=== PATIENT | female | born 1945 | race Caucasian/White ===

== ENCOUNTER 2022-09-08 03:11 | Inpatient (IN) | payer OTHER ==
[~2022-09-08] VITALS: Ht 175.3 cm; Wt 63.4 kg
[2022-09-08] MEDS ORDERED: ACETAMINOPHEN 325 MG TAB PO PRN (10:00)
[2022-09-08] MEDS ORDERED: NITROGLYCERIN 0.4 MG SL TAB SL PRN (10:00)
[2022-09-08] MEDS ORDERED: HYDROcodone-ACET 5/325MG TAB PO PRN (10:00)
[2022-09-08 10:35] VITALS: PULSE 77; RESP 20; O2SAT 94
[2022-09-08 13:31] LABS: Basophils # (auto) 0.1 10 ^3/uL (0-0.2); Basophils % (auto) 0.5 % (0.0-2.0); Eosinophils # (auto) 0 10 ^3/uL (0-0.8); Eosinophils % (auto) 0.4 % (0.0-7.0); Hematocrit 40.4 % (36.0-46.0); Hemoglobin 13.4 g/dL (12.2-16.2); Lymphocytes # (auto) 1.1 10 ^3/uL (0.4-5.4); Mean Corpuscular Hemoglobin 29.5 pg (28.0-32.0); Mean Corpuscular Hgb Conc. 33.1 g/dL (32.0-36.0); Mean Corpuscular Volume 89.1 fL (80.0-100.0); Monocytes # (auto) 0.9 10 ^3/uL (0-1.3); Monocytes % (auto) 8.3 % (0.0-12.0); Neutrophils # (auto) 9.2 10 ^3/uL (1.6-8.6); Neutrophils % (auto) 80.8 % (37.0-80.0); Red Blood Cells 4.54 10^6/uL (4.0-5.20); Red Cell Distribution Width 13.4 % (11.8-14.3); White Blood Cell 11.4 10^3/uL (4.4-10.8)
[2022-09-08] MEDS: HYDROcodone-ACET 10/325MG TAB PO PRN ×2 (13:34→19:52)
[2022-09-08 13:40] LABS: Prothrombin Time 10.5 sec (9.3-11.8)
[2022-09-08 13:44] LABS: Albumin 3.2 g/dL (3.4-5.0); Calcium 8.6 mg/dL (8.5-10.1)
[2022-09-08 13:48] LABS: BUN/Creatinine Ratio 18.3 (10.0-20.0); Total Protein 6.5 g/dL (6.4-8.2)
[2022-09-08] MEDS ORDERED: ENOXAPARIN SOD 40 MG/0.4 ML SYRINGE SC ONE (14:45)
[2022-09-08 15:41] LABS: Urine Bacteria FEW /hpf (None Seen); Urine Blood 2+ /uL (Negative); Urine Clarity Clear (Clear); Urine Color Colorless (Yellow); Urine Protein, UAD Negative (Negative); Urine Specific Gravity 1.012 (1.001-1.035); Urine Urobilinogen Normal (Negative); Urine WBC 1 /hpf (0 - 5)
[2022-09-08 16:40] VITALS: BP 135/70; PULSE 81; RESP 18; TEMP 98.4; O2SAT 94
[2022-09-08] MEDS: cefTRIAXone 1GM/50ML D5W 50 ML IV SCH (16:40)
[2022-09-08] MEDS: MORPHINE SULFATE INJ 2 MG/ml SYRG IV PRN ×3 (16:59→22:39)
[2022-09-08 20:00] VITALS: PULSE 70; PULSE 81
[2022-09-08 22:00] VITALS: BP 109/55; PULSE 80; RESP 15; TEMP 98.4; O2SAT 91
[2022-09-09] VITALS (7 sets, daily range): BP systolic 122–138; BP diastolic 58–74; PULSE 78–98; RESP 16–18; TEMP 98–98.4; O2SAT 90–99
[2022-09-09] MEDS: MORPHINE SULFATE INJ 2 MG/ml SYRG IV PRN ×3 (05:21→11:58)
[2022-09-09 05:47] LABS: Basophils # (auto) 0 10 ^3/uL (0-0.2); Basophils % (auto) 0.3 % (0.0-2.0); Eosinophils # (auto) 0.1 10 ^3/uL (0-0.8); Eosinophils % (auto) 1.4 % (0.0-7.0); Hematocrit 36.2 % (36.0-46.0); Hemoglobin 12.7 g/dL (12.2-16.2); Lymphocytes # (auto) 1.2 10 ^3/uL (0.4-5.4); Lymphocytes % (auto) 14.4 % (10.0-50.0); Mean Corpuscular Hemoglobin 30.7 pg (28.0-32.0); Mean Corpuscular Volume 87.7 fL (80.0-100.0); Monocytes # (auto) 0.9 10 ^3/uL (0-1.3); Monocytes % (auto) 11.4 % (0.0-12.0); Neutrophils # (auto) 5.9 10 ^3/uL (1.6-8.6); Neutrophils % (auto) 72.5 % (37.0-80.0); Nucleated Red Blood Cells % 0.1 %; Red Blood Cells 4.13 10^6/uL (4.0-5.20); Red Cell Distribution Width 13.2 % (11.8-14.3); White Blood Cell 8.1 10^3/uL (4.4-10.8)
[2022-09-09 05:51] LABS: Potassium 3.9 mmol/L (3.5-5.1)
[2022-09-09 05:58] LABS: BUN/Creatinine Ratio 28.2 (10.0-20.0); Calcium 8.3 mg/dL (8.5-10.1)
[2022-09-09] MEDS: cefTRIAXone 1GM/50ML D5W 50 ML IV SCH (08:13)
[2022-09-09] MEDS: HYDROcodone-ACET 10/325MG TAB PO PRN (08:22)
[2022-09-09] MEDS ORDERED: SODIUM CHLORIDE 0.9% 1,000 ML IV SCH (09:15)
[2022-09-09 16:24] LABS: BUN/Creatinine Ratio 14.9 (10.0-20.0); Calcium 8.4 mg/dL (8.5-10.1); Potassium 3.8 mmol/L (3.5-5.1)
[2022-09-09 17:03] LABS: Sodium Urine 35 mmol/L (40-220)
[2022-09-09 17:05] LABS: Creatinine, Urine 61 mg/dL (30.0-125.0)
[2022-09-09] MEDS ORDERED: UREA 15gm PO Powder PKG PO SCH (19:00)
[2022-09-09] MEDS: UREA 15gm PO Powder PKG PO SCH (19:48)
[2022-09-10 01:00] LABS: BUN/Creatinine Ratio 60.5 (10.0-20.0); Calcium 8.3 mg/dL (8.5-10.1); Potassium 3.7 mmol/L (3.5-5.1)
[2022-09-10] MEDS: MORPHINE SULFATE INJ 2 MG/ml SYRG IV PRN ×2 (02:50→13:31)
[2022-09-10 05:00] VITALS: BP 138/74; PULSE 79; RESP 17; TEMP 98.4; O2SAT 97
[2022-09-10 05:39] LABS: Basophils # (auto) 0 10 ^3/uL (0-0.2); Basophils % (auto) 0.3 % (0.0-2.0); Eosinophils # (auto) 0.1 10 ^3/uL (0-0.8); Eosinophils % (auto) 0.9 % (0.0-7.0); Hematocrit 36.6 % (36.0-46.0); Hemoglobin 12.5 g/dL (12.2-16.2); Lymphocytes % (auto) 11.5 % (10.0-50.0); Mean Corpuscular Hemoglobin 30.4 pg (28.0-32.0); Mean Corpuscular Hgb Conc. 34.2 g/dL (32.0-36.0); Mean Corpuscular Volume 88.9 fL (80.0-100.0); Monocytes # (auto) 1.1 10 ^3/uL (0-1.3); Monocytes % (auto) 12.2 % (0.0-12.0); Neutrophils # (auto) 6.6 10 ^3/uL (1.6-8.6); Neutrophils % (auto) 75.1 % (37.0-80.0); Nucleated Red Blood Cells % 0.1 %; Red Blood Cells 4.12 10^6/uL (4.0-5.20); Red Cell Distribution Width 13.1 % (11.8-14.3); White Blood Cell 8.8 10^3/uL (4.4-10.8)
[2022-09-10 06:01] LABS: Calcium 8.6 mg/dL (8.5-10.1); Potassium 3.6 mmol/L (3.5-5.1)
[2022-09-10] MEDS ORDERED: TRANEXAMIC ACID 20 ML ONE (07:15)
[2022-09-10] MEDS ORDERED: VANCOMYCIN HCL 1000 MG VL ONE (07:16)
[2022-09-10] MEDS ORDERED: BUPIVACAINE 0.25% INJ 50ML VIAL ONE (07:16)
[2022-09-10] MEDS ORDERED: fentaNYL CITRATE 100 MCG/2 ML VL ONE ×2 (07:19→07:56)
[2022-09-10] MEDS ORDERED: MIDAZOLAM HCL 2MG/2ML 2ml VIAL (1mg/ml) ONE (07:20)
[2022-09-10] MEDS ORDERED: KETOROLAC TROMETH 30 MG/ML 1ML VIAL ONE (07:34)
[2022-09-10] MEDS ORDERED: MORPHINE SULF PF 5 MG/10 ML VIAL ONE (07:34)
[2022-09-10] MEDS ORDERED: ceFAZolin 1GM/50ML 100 ML IV ONE (07:54)
[2022-09-10] MEDS ORDERED: PROPOFOL 10 MG/ML 20 ML IV ONE ×2 (07:57→12:41)
[2022-09-10] MEDS ORDERED: LIDOCAINE 1% INJ PF 5ML AMP ONE (07:57)
[2022-09-10] MEDS ORDERED: ROCURONIUM 10MG/ML 10ML VIAL IV ONE (07:58)
[2022-09-10 08:00] VITALS: PULSE 77; PULSE 78; RESP 20; O2SAT 100
[2022-09-10] MEDS: UREA 15gm PO Powder PKG PO SCH ×2 (08:00→19:43)
[2022-09-10] MEDS: cefTRIAXone 1GM/50ML D5W 50 ML IV SCH (09:00)
[2022-09-10] MEDS ORDERED: HYDROmorphone HCL 2 MG/ML VL/or syr ONE (09:06)
[2022-09-10] MEDS ORDERED: ROPIVACAINE 0.5% (5MG/ML) 20ML AMPULE IJ ONE (09:53)
[2022-09-10] MEDS ORDERED: ONDANSETRON HCL 4 MG/2 ML VIAL IV PRN (10:00)
[2022-09-10] MEDS ORDERED: HYDROmorphone HCL 2 MG/ML VL/or syr IV PRN ×2 (10:00)
[2022-09-10 14:05] LABS: BUN/Creatinine Ratio 23.9 (10.0-20.0); Calcium 7.9 mg/dL (8.5-10.1); Potassium 4.1 mmol/L (3.5-5.1)
[2022-09-10] MEDS: ceFAZolin 2 GM/D5W100ml 100 ML IV SCH ×2 (16:47→21:50)
[2022-09-10 17:00] VITALS: BP 101/52; PULSE 69; RESP 19; O2SAT 100
[2022-09-10 19:34] LABS: BUN/Creatinine Ratio 27.7 (10.0-20.0); Calcium 7.9 mg/dL (8.5-10.1); Potassium 4.1 mmol/L (3.5-5.1)
[2022-09-10 20:00] VITALS: PULSE 73; PULSE 78; RESP 17; O2SAT 99
[2022-09-10 22:00] VITALS: BP 112/53; PULSE 73; RESP 16; TEMP 97.7; O2SAT 99
[2022-09-11 01:15] LABS: Calcium 7.9 mg/dL (8.5-10.1); Potassium 3.8 mmol/L (3.5-5.1)
[2022-09-11] MEDS: ceFAZolin 2 GM/D5W100ml 100 ML IV SCH ×3 (05:06→22:23)
[2022-09-11 06:31] LABS: Basophils # (auto) 0 10 ^3/uL (0-0.2); Basophils % (auto) 0.5 % (0.0-2.0); Eosinophils # (auto) 0.1 10 ^3/uL (0-0.8); Eosinophils % (auto) 1.5 % (0.0-7.0); Hemoglobin 10.7 g/dL (12.2-16.2); Lymphocytes # (auto) 0.7 10 ^3/uL (0.4-5.4); Lymphocytes % (auto) 8.1 % (10.0-50.0); Mean Corpuscular Hemoglobin 31.4 pg (28.0-32.0); Mean Corpuscular Hgb Conc. 35.6 g/dL (32.0-36.0); Mean Corpuscular Volume 88.2 fL (80.0-100.0); Monocytes # (auto) 1.1 10 ^3/uL (0-1.3); Monocytes % (auto) 12.5 % (0.0-12.0); Neutrophils # (auto) 7.1 10 ^3/uL (1.6-8.6); Neutrophils % (auto) 77.4 % (37.0-80.0); Red Blood Cells 3.41 10^6/uL (4.0-5.20); Red Cell Distribution Width 12.9 % (11.8-14.3); White Blood Cell 9.2 10^3/uL (4.4-10.8)
[2022-09-11 06:51] LABS: BUN/Creatinine Ratio 43.2 (10.0-20.0); Calcium 7.9 mg/dL (8.5-10.1); Potassium 3.7 mmol/L (3.5-5.1)
[2022-09-11 08:00] VITALS: PULSE 67; PULSE 73; PULSE 85; RESP 18; O2SAT 93
[2022-09-11] MEDS: HYDROcodone-ACET 10/325MG TAB PO PRN ×2 (09:12→17:31)
[2022-09-11] MEDS: UREA 15gm PO Powder PKG PO SCH ×3 (10:32→20:51)
[2022-09-11 13:17] LABS: BUN/Creatinine Ratio 28.6 (10.0-20.0); Calcium 8.2 mg/dL (8.5-10.1); Potassium 3.5 mmol/L (3.5-5.1)
[2022-09-11] MEDS: ASPirin 81 mg TAB PO SCH (18:44)
[2022-09-11 20:00] VITALS: BP 111/60; PULSE 83; RESP 18; TEMP 98.2; O2SAT 95; O2SAT 96
[2022-09-11] MEDS: MORPHINE SULFATE INJ 2 MG/ml SYRG IV PRN (22:24)
[2022-09-12] VITALS (7 sets, daily range): BP systolic 96–126; BP diastolic 46–71; PULSE 64–85; RESP 16–18; TEMP 97.1–98.4; O2SAT 93–96
[2022-09-12 06:09] LABS: BUN/Creatinine Ratio 128.1 (10.0-20.0); Calcium 8.5 mg/dL (8.5-10.1); Potassium 3.3 mmol/L (3.5-5.1)
[2022-09-12] MEDS: ASPirin 81 mg TAB PO SCH ×2 (06:17→17:52)
[2022-09-12] MEDS: ceFAZolin 2 GM/D5W100ml 100 ML IV SCH ×3 (06:17→22:04)
[2022-09-12] MEDS: HYDROcodone-ACET 10/325MG TAB PO PRN ×2 (08:08→17:52)
[2022-09-12] MEDS ORDERED: POTASSIUM CHL 20 Meq TABLET PO ONE (15:45)
[2022-09-12 16:43] LABS: COVID19 ANTIGEN SOFIA FIA NEGATIVE (NEGATIVE)
[2022-09-13 05:00] VITALS: BP 123/66; PULSE 76; RESP 16; TEMP 98.4; O2SAT 90
[2022-09-13] MEDS: ASPirin 81 mg TAB PO SCH (06:07)
[2022-09-13] MEDS: ceFAZolin 2 GM/D5W100ml 100 ML IV SCH ×2 (06:07→14:26)
[2022-09-13 08:00] VITALS: BP 126/66; PULSE 74; PULSE 76; RESP 18; TEMP 97.6; O2SAT 92
[2022-09-13 08:56] VITALS: BP 126/66; PULSE 76; RESP 18; TEMP 97.6; O2SAT 92
[2022-09-13] MEDS: HYDROcodone-ACET 10/325MG TAB PO PRN (09:45)
[2022-09-13 13:00] VITALS: BP 117/64; PULSE 80; RESP 20; TEMP 97.9; O2SAT 97
[2022-09-13 14:46] LABS: Potassium 3.9 mmol/L (3.5-5.1)
[2022-09-13 14:51] LABS: BUN/Creatinine Ratio 27.5 (10.0-20.0); Calcium 8.4 mg/dL (8.5-10.1)
[2022-09-13 15:57] VITALS: BP 117/64; PULSE 80; RESP 20; TEMP 97.9; O2SAT 97
== END 2022-09-13 17:00 | DRG 469 ==
LOC: TELE-CENTR 08:11
PROVIDERS: ADMIT Nurse Practitioner Family; ATTEND Nurse Practitioner Family
PROC: 0SRS0JZ Replacement of Left Hip Joint, Femoral Surface with Synthetic Substitute, Open Approach (ICD-10-PCS; principal; 2022-09-10 07:57)
PROC: 0PSJ34Z Reposition Left Radius with Internal Fixation Device, Percutaneous Approach (ICD-10-PCS; 2022-09-10 07:57)
DX: S52.502A Unspecified fracture of the lower end of left radius, initial encounter for closed fracture (principal); S72.002A Fracture of unspecified part of neck of left femur, initial encounter for closed fracture; J98.11 Atelectasis; E22.2 Syndrome of inappropriate secretion of antidiuretic hormone; F17.210 Nicotine dependence, cigarettes, uncomplicated; W18.39XA Other fall on same level, initial encounter; Z20.822 Contact with and (suspected) exposure to COVID-19; I10 Essential (primary) hypertension; Z91.018 Allergy to other foods; Z88.7 Allergy status to serum and vaccine; Z79.899 Other long term (current) drug therapy; Z82.49 Family history of ischemic heart disease and other diseases of the circulatory system; Y93.89 Activity, other specified; Y92.89 Other specified places as the place of occurrence of the external cause; Y99.8 Other external cause status
CPT/HCPCS: 36415; 71045; 72170; 73100; 73110; 76000; 80048; 80053; 81001; 82570; 83930; 83935; 84133; 84300; 85025; 85610; 86850; 86900; 86901; 87040; 87426; 93005; 93306; 96372; 97110; 97116; 97163; 97530; A4565; G0378; J0690; J0696; J1885; J2250; J2704; J3490

== ENCOUNTER 2025-02-15 14:40 | Inpatient (IN) | payer OTHER ==
[~2025-02-15] VITALS: Ht 170.2 cm; Wt 59.3 kg
--- NOTE | 2025-02-15 14:50 | ECG ---
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
--- NOTE | 2025-02-15 14:56 | ED.PDOC ---
History of Present Illness HPI Comments 79-year-old female came to the ER stating that she has been having chest pain which started around 12 30 in the afternoon. Patient was just resting when the pain started. Patient states that she never had chest pain like this in the past. Chest pain mostly in the mid chest no radiation of the chest pain to the shoulder to the back. Denies nausea vomiting sweating. Denies any past medical history. Denies any other symptoms. Chief Complaint: Chest Pain Time Seen by MD: 14:46 Reviewed Notes: Nurses Notes, Medications, Allergies Allergies: Coded Allergies: Banana (Verified Allergy, Severe, 09/08/22) Uncoded Allergies: GLUTEN (Allergy, Severe, 09/08/22) ORANGE JUICE (Allergy, Severe, 09/08/22) PECANS (Allergy, Severe, 09/08/22) TETANUS (Allergy, Severe, 09/08/22) WALNUTS (Allergy, Severe, 09/08/22) Home Meds No Active Prescriptions or Reported Meds Information Source: Patient Mode of Arrival: Wheelchair Severity: Moderate Timing: Hours Duration: Since onset Past Medical History PAST MEDICAL HISTORY: Denies Surgical History: Denies all surgeries STORE CASHIER History: No Pertinent STORE CASHIER History Social History Smoker: Cigarettes Alcohol: Denies ETOH Use Drugs: Denies Drug Use Constitutional: denies: chills, diaphoresis, fatigue, fever, malaise, sweats, weakness, others EENTM: denies: blurred vision, double vision, ear bleeding, ear discharge, ear drainage, ear pain, ear ringing, eye pain, eye redness, hearing loss, mouth pain, mouth swelling, nasal discharge, nose bleeding, nose congestion, nose pain, photophobia, tearing, throat pain, throat swelling, voice changes, others Respiratory: denies: cough, hemoptysis, orthopnea, SOB at rest, shortness of breath, SOB with excertion, stridor, wheezing, others Cardiovascular: reports: chest pain; denies: dizzy spells, diaphoresis, Dyspnea on exertion, edema, irregular heart beat, left arm pain, lightheadedness, palpitations, PND, syncope, others Gastrointestinal: denies: abdomen distended, abdominal pain, blood streaked bowels, constipated, diarrhea, dysphagia, difficulty swallowing, hematemesis, melena, nausea, poor appetite, poor fluid intake, rectal bleeding, rectal pain, vomiting, others Genitourinary: denies: abnormal vagina bleeding, burning, dyspareunia, dysuria, flank pain, frequency, hematuria, incontinence, pain, , vagina discharge, urgency, others Neurological: denies: dizziness, fainting, headache, left sided numbness, left sided weakness, numbness, paresthesia, pre-existing deficit, right sided numbness, right sided weakness, seizure, speech problems, tingling, tremors, weakness, others Musculoskeletal: denies: back pain, gout, joint pain, joint swelling, muscle pain, muscle stiffness, neck pain, others Integumetry: denies: bruises, change in color, change in hair/nails, dryness, laceration, lesions, lumps, rash, wounds, others Allergic/Immunocompromised: denies: Difficulty Healing, Frequent Infections, Hives, Itching, others Hematologic/Lymphatic: denies: anemia, blood clots, easy bleeding, easy bruising, swollen glands, others Endocrine: denies: excessive hunger, excessive sweating, excessive thirst, excessive urination, flushing, intolerance to cold, intolerance to heat, u nexplained weight gain, unexplained weight loss, others Psychiatric: denies: anxiety, bipolar disorder, depression, hopeless, panic disorder, schizophrenia, sleepless, suicidal, others Physical Exam General Appearance: Moderate Distress HEENT: Normal ENT Inspection, Pharynx Normal, TMs Normal Neck: Full Range of Motion, Non-Tender, Normal, Normal Inspection Respiratory: Chest Non-Tender, Lungs Clear, No Accessory Muscle Use, No Respiratory Distress, Normal Breath Sounds Cardiovascular: No Edema, No JVD, No Murmur, No Gallop, Normal Peripheral Pulses, Regular Rate/Rhythm Breast Exam: Deferred Gastrointestinal: No Organomegaly, Non Tender, No Pulsatile Mass, Normal Bowel Sounds, Soft Genitalia: Deferred Pelvic: Deferred Rectal: Deferred Extremities: No calf tenderness, Normal capillary refill, Normal inspection, Normal range of motion, Non-tender, No pedal edema Musculoskeletal : Apperance: Normal Neurologic: Alert, examining officer II-XII nml as Tested, No Motor Deficits, Normal Affect, Normal Mood, No Sensory Deficits Cerebellar Function: NOT DONE Reflexes: NOT DONE Skin: Dry, Normal Color, Warm Peripheral Pulses: 3+ Radial (R), 3+ Radial (L) Lymphatic: No Adenopathy Was a procedure done? Was a procedure done?: No EKG EKG : Pulse Rate (adult): 85 Cardiac Rhythm: NSR Differential Dx Considerations may include: Anemia Electrolyte imbalance X-Ray, Labs, Meds, VS Vital Signs Date Time Temp Pulse Resp B/P (MAP) Pulse Ox O2 Delivery O2 Flow Rate FiO2 02/15/25 17:20 98.2 79 18 111/58 (75) 95 98.2 02/15/25 16:09 79 02/15/25 14:56 85 02/15/25 14:51 97.5 91 22 141/77 93 97.5 02/15/25 14:47 85 Lab Test 02/15/25 16:25 02/15/25 14:54 Range/Units Troponin I High Sensitivity 3 L 3 L </=34 ng/L White Blood Count 12.3 H 4.4-10.8 10^3/uL Red Blood Count 4.62 4.0-5.20 10^6/uL Hemoglobin 14.4 12.2-16.2 g/dL Hematocrit 41.5 36.0-46.0 % Mean Corpuscular Volume 89.9 80.0-100.0 fL Mean Corpuscular Hemoglobin 31.1 28.0-32.0 pg Mean Corpuscular Hemoglobin Concent 34.6 32.0-36.0 g/dL Red Cell Distribution Width 13.0 11.8-14.3 % Platelet Count 349 140-450 10^3/uL Mean Platelet Volume 6.2 L 6.9-10.8 fL Neutrophils (%) (Auto) 82.5 H 37.0-80.0 % Lymphocytes (%) (Auto) 9.0 L 10.0-50.0 % Monocytes (%) (Auto) 8.0 0.0-12.0 % Eosinophils (%) (Auto) 0.3 0.0-7.0 % Basophils (%) (Auto) 0.2 0.0-2.0 % Neutrophils # (Auto) 10.2 H 1.6-8.6 10 ^3/uL Lymphocytes # (Auto) 1.1 0.4-5.4 10 ^3/uL Monocytes # (Auto) 1.0 0-1.3 10 ^3/uL Eosinophils # (Auto) 0 0-0.8 10 ^3/uL Basophils # (Auto) 0 0-0.2 10 ^3/uL Nucleated Red Blood Cells 0.0 % Sodium Level 134 L 136-145 mmol/L Potassium Level 3.8 3.5-5.1 mmol/L Chloride Level 102 98-107 mmol/L Carbon Dioxide Level 24 20-31 mmol/L Anion Gap 8 5-15 Blood Urea Nitrogen 15 9-23 mg/dL Creatinine 0.66 0.550-1.02 mg/dL Glomerular Filtration Rate Calc 88 >90 mL/min BUN/Creatinine Ratio 22.7 H 10.0-20.0 Serum Glucose 114 H 74-106 mg/dL Calcium Level 9.6 8.7-10.4 mg/dL Magnesium Level 2.0 1.6-2.6 mg/dL Total Bilirubin 0.3 0.2-1.0 mg/dL Aspartate Amino Transferase (AST) 25 13-40 U/L Alanine Aminotransferase (ALT) 15 7-40 U/L Alkaline Phosphatase 82 46-116 U/L Total Protein 7.1 5.7-8.2 g/dL Albumin 4.4 3.2-4.8 g/dL Patient alert. Complaining of chest pain. Vitals stable. Answering questions. Was given aspirin. Was given nitro. EKG reviewed does not show any acute changes. Chest x-ray does show changes. Explained to the patient. Continue monitoring. Time of 1ST Reevaluation: 14:55 Reevaluation 1ST: Unchanged Patient Education/Counseling: Diagnosis, Treatment, Prognosis Family Education/Counseling: No Family Present SEPSIS Sepsis Screen Physician Orders Chest Portable (02/15/25 14:44) Urinalysis (02/15/25 14:44) Troponin-I Hs (02/15/25 17:44) Electrocardigram (02/15/25 15:44) Electrocardigram (02/15/25 17:44) Vital Signs Date Time Temp Pulse Resp B/P (MAP) Pulse Ox O2 Delivery O2 Flow Rate FiO2 02/15/25 17:20 98.2 79 18 111/58 (75) 95 98.2 02/15/25 16:09 79 02/15/25 14:56 85 02/15/25 14:51 97.5 91 22 141/77 93 97.5 02/15/25 14:47 85 Laboratory Tests Test 02/15/25 14:54 White Blood Count 12.3 10^3/uL (4.4-10.8) H Departure 1 Departure Time of Disposition: 14:56 Impression: Primary Impression: Chest pain of unknown etiology Additional Impression: Pneumonitis Disposition: ADMITTED INPATIENT Admit to: Med Surg Condition: Guarded e-Prescriptions No Active Prescriptions or Reported Meds Critical Care Note Critical Care Time?: No Stability Stability form required: No Heart Score Heart Score: Heart Score Response (Comments) Value History Slightly Suspicious 0 EKG Normal 0 Age >65 2 Risk Factors >3 or Hx ASHD 2 Troponin Normal limit 0 Total 4 KYLE CHO MD Feb 15, 2025 14:56
[2025-02-15 15:05] LABS: Hematocrit 41.5 % (36.0-46.0); Hemoglobin 14.4 g/dL (12.2-16.2); Mean Corpuscular Hemoglobin 31.1 pg (28.0-32.0); Mean Corpuscular Volume 89.9 fL (80.0-100.0); Nucleated Red Blood Cells % 0.0 %
[2025-02-15 15:22] LABS: Alanine Aminotransferase 15 U/L (7-40); Albumin 4.4 g/dL (3.2-4.8); Alkaline Phosphatase 82 U/L (46-116); Anion Gap 8 (5-15); BUN/Creatinine Ratio 22.7 (10.0-20.0); Bilirubin, Total 0.3 mg/dL (0.2-1.0); Blood Urea Nitrogen 15 mg/dL (9-23); Calcium 9.6 mg/dL (8.7-10.4); Carbon Dioxide 24 mmol/L (20-31); Chloride 102 mmol/L (98-107); Magnesium 2.0 mg/dL (1.6-2.6); Potassium 3.8 mmol/L (3.5-5.1); Total Protein 7.1 g/dL (5.7-8.2)
[2025-02-15 15:23] LABS: Glucose 114 mg/dL (74-106); Sodium 134 mmol/L (136-145)
--- NOTE | 2025-02-15 15:57 | DVH ---
CHEST RADIOGRAPH Indication: chest pain Technique: Single frontal view of the chest was obtained COMPARISON: XY CHEST PORTABLE on DOS: 09/08/22 FINDINGS: Lines and Tubes: None Lungs: Chronic fibrotic changes with superimposed diffuse increased interstitial prominence. Pleura: No effusion. No pneumothorax. Cardiomediastinal contours: Unremarkable Bones: Unremarkable IMPRESSION: Chronic fibrotic changes with superimposed diffuse increased interstitial prominence which may represent atypical infection or pulmonary edema.
[2025-02-15] MEDS: NITROGLYCERIN 0.4 MG SL TAB SL ONE (17:37)
--- NOTE | 2025-02-15 17:37 | ECG ---
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
[2025-02-15] MEDS: methylPREDNISolone SOD SUCC 125 MG/2 ML VL IV ONE (20:07)
--- NOTE | 2025-02-15 23:56 | DVHHPRES ---
History of Present Illness Resident Creating Document: TABATHA BARCLAY RESIDENT History of Present Illness Li Jacques is an 79-year-old female with past medical history of COPD, osteoarthritis presented to the hospital with complaints of chest pain and shortness of breath. Patient reports that she was having lunch when the pain started in the clavicular area and later radiated down to the chest. She rates the chest pain 9 on 10 in intensity, sharp, continuous, radiating to the back and aggravating on breathing with no alleviating factors. She denies any Fever, constipation or diarrhea. PMHx:COPD, osteoarthritis PSHx: Hip surgery Family history: coronary artery disease in mother and father Social history: 50 pack-year smoking history. Lives in [place] alone, sister lives nearby Home medication: none Allergic history: penicillin, tetanus Review of Systems Review of Systems General: patient denies fever, fatigue, weaknes, sweating, any recent changes in appetite and weight HEENT: No headaches, visiual changes, hearing loss, tinnitus, nasal congestion and discharge, and sore throat. Cardiovascular: complains of chest pain and shortness of breath Respiratory: No cough, and wheezing. Gastrointestinal: Denies nausea, vomiting, dysphagia, odynophagia, heartburn, abdominal pain, flatulence, bloating, diarrhea, constipation, change in stool, or blood in stool. Genitourinary: No dysuria, hematuria, discharge, frequency, urgency, nocturia, incontinence, and urinary retention. Endocrine: No heat or cold intolerance, polydipsia, polyuria, and polyphagia. Neurological: No dizziness, extremity weakness and numbness, tremors, gait disturbance, seizures, and memory impairment. Psychiatric: Denies depression, anxiety,or insomnia. Musculoskeletal: Denies neck pain, stiffness and swelling, back pain, muscle weakness, joint pain, stiffness, swelling, or limited range of motion. Skin: No rashes, itching, skin lesion, changes in hair, nail, skin texture and breast. Hematologic/Lymphatic: Denies easy bruising, bleeding tendencies, or lymph node enlargement. Allergies: Coded Allergies: Banana (Verified Allergy, Severe, 09/08/22) Penicillins (Verified Allergy, Unknown, 02/15/25) Uncoded Allergies: GLUTEN (Allergy, Severe, 09/08/22) ORANGE JUICE (Allergy, Severe, 09/08/22) PECANS (Allergy, Severe, 09/08/22) TETANUS (Allergy, Severe, 09/08/22) WALNUTS (Allergy, Severe, 09/08/22) Medications Current Medications Medications Dose Ordered Sig/Veto Route Start Time Stop Time Status Last Admin Dose Admin Enoxaparin Sodium 40 mg DAILY SC 02/16/25 10:00 Exam Vital Signs Vital Signs Date Time Temp Pulse Resp B/P (MAP) Pulse Ox O2 Delivery O2 Flow Rate FiO2 02/15/25 18:00 74 18 122/91 (101) 92 02/15/25 17:20 98.2 98.2 Exam General Appearance: Alert, Oriented X3, Cooperative, No acute distress HEENT: Atraumatic, PERRLA, EOMI, Mucous membrane moist/pink Respiratory: Clear to auscultation, Normal air movement Cardiovascular: Regular rate, Normal S1, Normal S2, No murmurs, chest wall tenderness present Abdominal: Normal bowel sounds, Soft, No tenderness, No hepatospenomegaly, No masses Extremities: No clubbing, No cyanosis, No edema, Normal pulses, No tende rness/swelling Skin: No rashes, No breakdown, No significant lesion Neuro: Normal gait, Normal speech, Strength at 5/5 X4 ext, Normal tone, Sensation intact, Cranial nerves 3-12 NL, Reflexes 2+ Psych/Mental Status: Mental status NL, Mood NL Labs/Xrays Labs Test 02/15/25 16:25 02/15/25 14:54 Range/Units Troponin I High Sensitivity 3 L </=34 ng/L White Blood Count 12.3 H 4.4-10.8 10^3/uL Red Blood Count 4.62 4.0-5.20 10^6/uL Hemoglobin 14.4 12.2-16.2 g/dL Hematocrit 41.5 36.0-46.0 % Mean Corpuscular Volume 89.9 80.0-100.0 fL Mean Corpuscular Hemoglobin 31.1 28.0-32.0 pg Mean Corpuscular Hemoglobin Concent 34.6 32.0-36.0 g/dL Red Cell Distribution Width 13.0 11.8-14.3 % Platelet Count 349 140-450 10^3/uL Mean Platelet Volume 6.2 L 6.9-10.8 fL Neutrophils (%) (Auto) 82.5 H 37.0-80.0 % Lymphocytes (%) (Auto) 9.0 L 10.0-50.0 % Monocytes (%) (Auto) 8.0 0.0-12.0 % Eosinophils (%) (Auto) 0.3 0.0-7.0 % Basophils (%) (Auto) 0.2 0.0-2.0 % Neutrophils # (Auto) 10.2 H 1.6-8.6 10 ^3/uL Lymphocytes # (Auto) 1.1 0.4-5.4 10 ^3/uL Monocytes # (Auto) 1.0 0-1.3 10 ^3/uL Eosinophils # (Auto) 0 0-0.8 10 ^3/uL Basophils # (Auto) 0 0-0.2 10 ^3/uL Nucleated Red Blood Cells 0.0 % Sodium Level 134 L 136-145 mmol/L Potassium Level 3.8 3.5-5.1 mmol/L Chloride Level 102 98-107 mmol/L Carbon Dioxide Level 24 20-31 mmol/L Anion Gap 8 5-15 Blood Urea Nitrogen 15 9-23 mg/dL Creatinine 0.66 0.550-1.02 mg/dL Glomerular Filtration Rate Calc 88 >90 mL/min BUN/Creatinine Ratio 22.7 H 10.0-20.0 Serum Glucose 114 H 74-106 mg/dL Calcium Level 9.6 8.7-10.4 mg/dL Magnesium Level 2.0 1.6-2.6 mg/dL Total Bilirubin 0.3 0.2-1.0 mg/dL Aspartate Amino Transferase (AST) 25 13-40 U/L Alanine Aminotransferase (ALT) 15 7-40 U/L Alkaline Phosphatase 82 46-116 U/L Total Protein 7.1 5.7-8.2 g/dL Albumin 4.4 3.2-4.8 g/dL SEPSIS Sepsis Screen Date sepsis recognized/suspect: Feb 15, 2025 Time Sepsis recognized/suspect: 1735 Recent Procedure: No On Antibiotic Therapy: No Respiratory Rate >20: No Heart Rate >90: No Temp<36 C (96.8 F) or >38.3 C: No SBP <90 or MAP <65 mmHG: No New Acute Mental Status Change: No Is the patient on CPAP, BIPAP,: No Physician Orders Admit (02/15/25 22:57) Allergies (02/15/25 22:57) Code Status (02/15/25 22:57) Enoxaparin Sodium (Lovenox) (02/16/25 10:00) Fall Risk Precautions In Place QSHIFT (02/15/25 22:57) Complete Blood Count (02/16/25 04:00) Comprehensive Metabolic Panel (02/16/25 04:00) Cardiac Diet-2gna,Lofat,Lochol (02/16/25 Breakfast) Condition: Fair (02/15/25 22:57) Vital Signs Date Time Temp Pulse Resp B/P (MAP) Pulse Ox O2 Delivery O2 Flow Rate FiO2 02/15/25 18:00 74 18 122/91 (101) 92 02/15/25 17:37 111/58 02/15/25 17:20 98.2 79 18 111/58 (75) 95 98.2 02/15/25 16:09 79 Laboratory Tests Test 02/15/25 14:54 White Blood Count 12.3 10^3/uL (4.4-10.8) H Medications Medications Dose Ordered Sig/Veto Route Start Time Stop Time Status Last Admin Dose Admin Aspirin 325 mg ONCE ONCE PO 02/15/25 15:00 02/15/25 15:01 DC 02/15/25 15:00 325 MG Methylprednisolone Sodium Succinate 125 mg ONCE ONCE IV 02/15/25 18:15 02/15/25 18:16 DC 02/15/25 20:07 125 MG Nitroglycerin 0.4 mg ONCE ONCE SL 02/15/25 15:00 02/15/25 15:01 DC 02/15/25 17:37 0.4 MG Assessment/Plan Assessment/Plan Assessment and plan Atypical pneumonia Chest pain, likely costochondritis SIRS positive Leukocytosis due to above azithromycin COVID, influenza Tylenol, ibuprofen IV fluids Hyponatremia likely hypovolemic follow sodium levels Hyperglycemia, rule out type 2 diabetes mellitus blood glucose 150 Hemoglobin A1c COPD, no exacerbation Osteoarthritis Follow up with PCP on discharge PUD prophylaxis: not needed DVT prophylaxis: Levonox 40mg Barriers to discharge: Medical diagnosis and management in progress. Patient lives with family. Independent for ADL. PCP: Dr. Weiss Specialist Relevent To Admission: None Case discussed with Dr. Wood. Code Status: Full Code. Complex patient care discussion needed. Spend total 37 minutes for bedside assessment, case discussion and management. Plan discussed with: Patient My Orders Orders - TABATHA BARCLAY Procedure Category Date Status Time Admit ADMIT 02/15/25 Transmitted 22:57 Allergies YANIV 02/15/25 In Process 22:57 Code Status CODE 02/15/25 Transmitted 22:57 Enoxaparin Sodium PHA 02/16/25 In Process (Lovenox) 10:00 Fall Risk Precautions YANIV 02/15/[address] 22:57 Complete Blood Count LAB 02/16/25 Verified 04:00 Comprehensive LAB 02/16/25 Verified Metabolic Panel 04:00 Cardiac DIET 02/16/25 Transmitted Diet-2gna,Lofat,Lochol Breakfast Condition: Fair YANIV 02/15/25 In Process 22:57 Visit Coding STANDARD RES Billing Provider: YVETTE FERRIS MD Date of Service if different f: Feb 15, 2025 Common Visit Codes: 69434-AWGCJAN INP/OBS CARE (HIGH) Secondary Visit Codes: 53148-[id number] CARE PLAN 30 MINUTES TABATHA BARCLAY Feb 15, 2025 23:56
[2025-02-16] MEDS ORDERED: IBUPROFEN 400 MG TAB PO PRN (02:15)
[2025-02-16] MEDS: ACETAMINOPHEN 325 MG TAB PO SCH (02:35)
[2025-02-16 03:59] LABS: COVID19 ANTIGEN SOFIA FIA NEGATIVE (NEGATIVE)
[2025-02-16 04:26] LABS: Hematocrit 40.6 % (36.0-46.0); Hemoglobin 14.1 g/dL (12.2-16.2); Mean Corpuscular Hemoglobin 31.3 pg (28.0-32.0); Mean Corpuscular Volume 90.3 fL (80.0-100.0); Nucleated Red Blood Cells % 0.0 %
[2025-02-16 04:49] LABS: Alanine Aminotransferase 12 U/L (7-40); Albumin 4.4 g/dL (3.2-4.8); Alkaline Phosphatase 78 U/L (46-116); BUN/Creatinine Ratio 21.9 (10.0-20.0); Bilirubin, Total 0.6 mg/dL (0.2-1.0); Blood Urea Nitrogen 14 mg/dL (9-23); Calcium 9.7 mg/dL (8.7-10.4); Chloride 102 mmol/L (98-107); Cholesterol 160 mg/dL (< 200); Magnesium 2.2 mg/dL (1.6-2.6); Potassium 4.6 mmol/L (3.5-5.1); Total Protein 6.9 g/dL (5.7-8.2); Triglycerides 33 mg/dL (< 150)
[2025-02-16 04:52] LABS: Glucose 150 mg/dL (74-106); HDL Cholesterol 68 mg/dL (40-59); Sodium 131 mmol/L (136-145)
[2025-02-16 05:07] LABS: Anion Gap 9 (5-15)
[2025-02-16 05:09] LABS: Carbon Dioxide 20 mmol/L (20-31)
[2025-02-16 05:24] VITALS: BP 110/54; PULSE 66; RESP 16; TEMP 97.5; O2SAT 96
[2025-02-16 05:34] VITALS: BP 110/54; PULSE 66; RESP 16; TEMP 97.5; O2SAT 96
[2025-02-16 05:36] LABS: Urine Protein, UAD Negative (Negative)
[2025-02-16] MEDS ORDERED: MULTLIQ36 PO (07:36)
[2025-02-16 08:00] VITALS: RESP 18; O2SAT 98
[2025-02-16 08:30] VITALS: BP_SYST 111; BP_SYST 116; BP_DIAS 60; BP_DIAS 71; PULSE 76; PULSE 95; RESP 18; TEMP 97.7; TEMP 98.1; O2SAT 96; O2SAT 98
[2025-02-16] MEDS: FAMOTIDINE 20 MG TAB PO SCH (10:03)
[2025-02-16] MEDS: ASPirin-EC 81 mg tab PO SCH (10:03)
[2025-02-16] MEDS: AZITHROMYCIN 250 MG TAB PO SCH (10:04)
[2025-02-16] MEDS: ENOXAPARIN SOD 40 MG/0.4 ML SYRINGE SC SCH (10:04)
[2025-02-16] MEDS: SODIUM CHLORIDE 0.9% 1,000 ML IV ONE (10:09)
[2025-02-16] MEDS: predniSONE 20 MG TAB PO ONE (12:26)
[2025-02-16 13:30] VITALS: BP 112/59; PULSE 78; RESP 20; TEMP 97.9; O2SAT 94
[2025-02-16 13:31] LABS: Amphetamine Screen, Urine Neg (NEGATIVE); Barbiturate Scree,Urine Neg (NEGATIVE); Benzodiazephine Screen, Urine Neg (NEGATIVE); Cannabinoid Screen, Urine Neg (NEGATIVE); Cocaine Screen, Urine Neg (NEGATIVE); Opiate Scree,Urine Neg (NEGATIVE); Phencyclidine Screen, Urine Neg (NEGATIVE)
[2025-02-16] MEDS: DOXYCYCLINE 100MG/100ML 100 ML IV ONE (13:43)
[2025-02-16] MEDS ORDERED: PRED20TA2 PO (14:14)
[2025-02-16] MEDS ORDERED: DOXY1CAP58 PO (14:14)
[2025-02-16 14:34] VITALS: BP 111/58; TEMP 36.5
--- NOTE | 2025-02-16 16:13 | DVHDSRES ---
Discharge Summary Date of Admission Resident Creating Document: FRED SULLIVAN RESIDENT Feb 15, 2025 at 22:57 Date of Discharge: Feb 16, 2025 Admitting Diagnosis Pneumonia Labs/Diagnostic Data: Laboratory Results Test 02/16/25 03:44 02/16/25 02:40 02/15/25 16:25 White Blood Count 9.9 10^3/uL (4.4-10.8) Red Blood Count 4.49 10^6/uL (4.0-5.20) Hemoglobin 14.1 g/dL (12.2-16.2) Hematocrit 40.6 % (36.0-46.0) Mean Corpuscular Volume 90.3 fL (80.0-100.0) Mean Corpuscular Hemoglobin 31.3 pg (28.0-32.0) Mean Corpuscular Hemoglobin Concent 34.7 g/dL (32.0-36.0) Red Cell Distribution Width 13.1 % (11.8-14.3) Platelet Count 330 10^3/uL (140-450) Mean Platelet Volume 6.4 fL (6.9-10.8) Neutrophils (%) (Auto) 90.1 % (37.0-80.0) Lymphocytes (%) (Auto) 6.7 % (10.0-50.0) Monocytes (%) (Auto) 3.2 % (0.0-12.0) Eosinophils (%) (Auto) 0.0 % (0.0-7.0) Basophils (%) (Auto) 0.0 % (0.0-2.0) Neutrophils # (Auto) 8.9 10 ^3/uL (1.6-8.6) Lymphocytes # (Auto) 0.7 10 ^3/uL (0.4-5.4) Monocytes # (Auto) 0.3 10 ^3/uL (0-1.3) Eosinophils # (Auto) 0 10 ^3/uL (0-0.8) Basophils # (Auto) 0 10 ^3/uL (0-0.2) Nucleated Red Blood Cells 0.0 % Sodium Level 131 mmol/L (136-145) Potassium Level 4.6 mmol/L (3.5-5.1) Chloride Level 102 mmol/L (98-107) Carbon Dioxide Level 20 mmol/L (20-31) Anion Gap 9 (5-15) Blood Urea Nitrogen 14 mg/dL (9-23) Creatinine 0.64 mg/dL (0.550-1.02) Glomerular Filtration Rate Calc 89 mL/min (>90) BUN/Creatinine Ratio 21.9 (10.0-20.0) Serum Glucose 150 mg/dL (74-106) Hemoglobin A1c 5.9 % A1C (<5.7) Calcium Level 9.7 mg/dL (8.7-10.4) Magnesium Level 2.2 mg/dL (1.6-2.6) Total Bilirubin 0.6 mg/dL (0.2-1.0) Aspartate Amino Transferase (AST) 21 U/L (13-40) Alanine Aminotransferase (ALT) 12 U/L (7-40) Alkaline Phosphatase 78 U/L (46-116) Total Protein 6.9 g/dL (5.7-8.2) Albumin 4.4 g/dL (3.2-4.8) Triglycerides Level 33 mg/dL (< 150) Cholesterol Level 160 mg/dL (< 200) LDL Cholesterol 89 mg/dL (< 100) HDL Cholesterol 68 mg/dL (40-59) Urine Color Light-yellow (Yellow) Urine Clarity Clear (Clear) Urine pH 6.0 (5.0-9.0) Urine Specific [place] 1.020 (1.001-1.035) Urine Protein Negative (Negative) Urine Ketones Trace (Negative) Urine Blood 2+ /uL (Negative) Urine Nitrite Negative (Negative) Urine Bilirubin Negative (Negative) Urine Urobilinogen Normal mg/dL (Negative) Urine Leukocyte Esterase Trace /uL (Negative) Urine RBC 34 /hpf (0 - 4) Urine Microscopic WBC 5 /HPF (0-5) Urine Squamous Epithelial Cells Few /hpf (<5) Urine Bacteria None seen /hpf (None Seen) Urine Glucose Normal mg/dL (Normal) Urine Opiates Screen Neg (NEGATIVE) Urine Fentanyl Screen Neg (NEGATIVE) Urine Barbiturates Screen Neg (NEGATIVE) Urine Phencyclidine Screen Neg (NEGATIVE) Urine Amphetamines Screen Neg (NEGATIVE) Urine Benzodiazepines Screen Neg (NEGATIVE) Urine Cocaine Screen Neg (NEGATIVE) Urine Cannabinoids Screen Neg (NEGATIVE) Influenza Type A Antigen Negative (Negative) Influenza Type B Antigen Negative (Negative) SARS-CoV-2 Antigen (Rapid) Negative (NEGATIVE) Troponin I High Sensitivity 3 ng/L (</=34) Other Laboratory Tests 02/16/25 03:44 Brief Hx & Hospital Course: An 79-year-old female with a history of COPD and osteoarthritis presented with severe chest pain (9.5/10) starting in the right clavicular region and radiating to the substernal area, worsened by breathing and occurring at rest. On admission, she was septic (HR 91, WBC 12.3, RR 22) and chest X-ray showed chronic fibrotic changes with diffuse interstitial prominence, suggestive of atypical infection or pulmonary edema. Chest pain was reproducible on palpation and likely due to costochondritis with concurrent atypical pneumonia. Initial treatment with azithromycin was changed to doxycycline after EKG revealed prolonged QT interval. She was monitored on telemetry. Pain improved with Tylenol, ibuprofen, and aspirin. Blood and respiratory cultures were obtained; viral panels and urinalysis were negative. She also had acute hypoxic respiratory failure requiring 2 L oxygen, which resolved during hospitalization. WBC normalized to 9.9, and the patient is now stable for discharge. She was counseled to complete doxycycline 100 mg BID for 5 days and prednisolone 40 mg daily for 5 days, and to follow up with her PCP within one week. Patient verbalized understanding of discharge instructions. 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 Condition at Discharge: Stable Final Diagnosis/Problems List Sepsis due to atypical pneumonia Chest pain due to costochondritis Acute hypoxic respiratory failure resolved COPD, no exacerbation Hypoglycemia, ruled out type 2 diabetes mellitus Mild hyponatremia likely hypovolemic Discharge Disposition: Home Discharge Instruct/Medications Diet: Regular Activity: No Restrictions, As Tolerated Follow Up/Referral: Please follow up with PCP within 2 weeks of discharge. 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 As per EHR Scheduled Doxycycline (Monohydrate) (Doxycycline), 100 MG PO BID Multiple Vitamins W/ Minerals (Multivitamin), 1 PO DAILY, (Reported) Prednisone (Prednisone), 40 MG PO DAILY Discharge Statement: "Patient was advised to return to the ER or call 911 if any headaches, dizziness, shortness of breath, chest pain, abdominal pain, bleeding, fevers, or worsening of medical condition. Patient was counseled about treatment plan, medications, possible side effects, patientverbalized understanding. All questions were answered to the best of my ability. This discharge took greater then 30 minutes in planning, reviewing documentation, counseling the patient, and discussing with other team members." ASSESSMENT ASSESSMENT Assessment Pleuritic Chest pain, ruled out ACS Addtional Muskuloskeletal chest pain Atypical Pneumonia Acute hypoxia Likely Sepsis Visit Coding STANDARD RES Billing Provider: TITA MORGAN MD Date of Service if different f: Feb 16, 2025 Common Visit Codes: 57758-UKY/OBS DISCH DAY >30min FRED SULLIVAN RESIDENT Feb 16, 2025 16:13
[2025-02-16] MEDS ORDERED: ATORVASTATIN 20 MG TAB PO SCH (22:00)
[2025-02-16] MEDS ORDERED: DOXYCYCLINE 100MG/100ML 100 ML IV SCH (22:00)
[2025-02-17] MEDS ORDERED: predniSONE 20 MG TAB PO SCH (10:00)
== END 2025-02-16 15:13 | disposition home or self-care (01) | DRG 871 ==
LOC: ER 14:40 → OVERFLOW 22:57
PROVIDERS: ADMIT Internal Medicine Geriatric Medicine; ATTEND Internal Medicine Geriatric Medicine
DX: A41.50 Gram-negative sepsis, unspecified (principal); J15.69 Pneumonia due to other Gram-negative bacteria; J15.9 Unspecified bacterial pneumonia; E86.1 Hypovolemia; J44.0 Chronic obstructive pulmonary disease with (acute) lower respiratory infection; E87.1 Hypo-osmolality and hyponatremia; M94.0 Chondrocostal junction syndrome [Tietze]; Z20.822 Contact with and (suspected) exposure to COVID-19; F17.210 Nicotine dependence, cigarettes, uncomplicated; J98.4 Other disorders of lung; R73.9 Hyperglycemia, unspecified; Z91.018 Allergy to other foods; Z82.49 Family history of ischemic heart disease and other diseases of the circulatory system; Z79.899 Other long term (current) drug therapy
CPT/HCPCS: 36415; 71045; 80053; 80061; 80307; 81001; 83036; 83735; 84484; 85025; 87070; 87205; 87426; 87804; 93005; 96374; G0378